=== PATIENT | male | born 2000 | race Caucasian/White ===

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

== ENCOUNTER 2018-03-23 09:13 | Emergency (ER) | payer OTHER ==
[~2018-03-23] VITALS: Ht 170.2 cm; Wt 77.1 kg
[2018-03-23 09:16] VITALS: Ht 170.2 cm; Wt 77.1 kg
[2018-03-23 10:24] LABS: BASOPHIL % 0.3 % (0-2); PLATELET COUNT 230 x10^3mcL (130-400); RED CELL DISTRIBUTION WIDTH 12.8 % (11.5-14.5)
[2018-03-23 10:33] LABS: CALCIUM 9.3 mg/dL (8.5-10.1); CARBON DIOXIDE 27.5 mmol/L (21-32); CHLORIDE SERUM 102 mmol/L (98-107); GFR1 > 60 mL/min; GLUCOSE SERUM 124 mg/dL (74-106); SODIUM SERUM 137 mmol/L (136-145)
[2018-03-23 10:34] LABS: microscopic required? NO
[2018-03-23 10:37] LABS: ALBUMIN 4.2 g/dL (3.4-5.0); ALKALINE PHOSPHATASE 110 U/L (46-116); ALT/SGPT 27 U/L (16-63); AST/SGOT 27 U/L (15-37); BILIRUBIN TOTAL 0.5 mg/dL (0.20-1.00); LIPASE 122 IU/L (73-393)
[2018-03-23 10:39] LABS: AMYLASE 122 U/L (25-115); TOTAL PROTEIN, SERUM 8.3 g/dL (6.4-8.2)
[2018-03-23 11:12] LABS: UA SPECIFIC GRAVITY 1.015 (1.005-1.035); urine erythrocyte NEGATIVE (NEGATIVE)
[2018-03-23 11:26] LABS: AMPHETAMINE QUAL UR NONE DETECTED (See below)
[2018-03-23 13:33] VITALS: BP 132/68
== END 2018-03-23 13:33 | disposition home or self-care (01) ==
LOC: ED 09:13
PROVIDERS: Emergency Medicine
DX: R11.10 Vomiting, unspecified (principal); F12.90 Cannabis use, unspecified, uncomplicated; F17.210 Nicotine dependence, cigarettes, uncomplicated
CPT/HCPCS: 99406; J1630; J2060; J7030

== ENCOUNTER 2018-06-08 12:31 | Emergency (ER) | payer OTHER ==
[~2018-06-08] VITALS: Ht 170.2 cm; Wt 78.9 kg
[2018-06-08 12:36] VITALS: Ht 170.2 cm; Wt 78.9 kg
[2018-06-08 13:21] LABS: BASOPHIL % 0.2 % (0-2); PLATELET COUNT 272 x10^3mcL (130-400)
[2018-06-08 13:34] LABS: RED CELL DISTRIBUTION WIDTH 12.7 % (11.5-14.5)
[2018-06-08 13:39] LABS: CALCIUM 9.2 mg/dL (8.5-10.1); CARBON DIOXIDE 29.2 mmol/L (21-32); CHLORIDE SERUM 103 mmol/L (98-107); GFR1 > 60 mL/min; GLUCOSE SERUM 130 mg/dL (74-106); POTASSIUM SERUM 3.8 mmol/L (3.5-5.1); SODIUM SERUM 139 mmol/L (136-145)
[2018-06-08 13:43] LABS: ALBUMIN 4.3 g/dL (3.4-5.0); ALKALINE PHOSPHATASE 119 U/L (46-116); ALT/SGPT 45 U/L (16-63); AST/SGOT 34 U/L (15-37); BILIRUBIN TOTAL 0.4 mg/dL (0.20-1.00); LIPASE 118 IU/L (73-393)
[2018-06-08 13:44] LABS: TOTAL PROTEIN, SERUM 8.4 g/dL (6.4-8.2)
[2018-06-08 15:06] LABS: microscopic required? NO
[2018-06-08 15:22] LABS: UA SPECIFIC GRAVITY 1.015 (1.005-1.035); urine erythrocyte NEGATIVE (NEGATIVE)
[2018-06-08 15:35] LABS: AMPHETAMINE QUAL UR NONE DETECTED (See below)
[2018-06-08 15:43] VITALS: BP 108/71
== END 2018-06-08 15:43 | disposition home or self-care (01) ==
LOC: ED 12:31
PROVIDERS: Emergency Medicine
DX: R10.13 Epigastric pain (principal); F12.988 Cannabis use, unspecified with other cannabis-induced disorder; R11.10 Vomiting, unspecified
CPT/HCPCS: J1630; J2060; J3490; J7030

== ENCOUNTER 2018-10-22 15:54 | Emergency (ER) | payer OTHER ==
[~2018-10-22] VITALS: Ht 170.2 cm; Wt 74.4 kg
[2018-10-22 16:07] VITALS: Ht 170.2 cm; Wt 74.4 kg
[2018-10-22 17:52] LABS: PLATELET COUNT 229 x10^3mcL (130-400); RED CELL DISTRIBUTION WIDTH 13.3 % (11.5-14.5)
[2018-10-22 17:54] LABS: BASOPHIL % 0 % (0-2)
[2018-10-22 18:04] LABS: CALCIUM 9.4 mg/dL (8.5-10.1); CARBON DIOXIDE 26.2 mmol/L (21-32); CHLORIDE SERUM 105 mmol/L (98-107); GFR1 > 60 mL/min; GLUCOSE SERUM 123 mg/dL (74-106); POTASSIUM SERUM 3.7 mmol/L (3.5-5.1); SODIUM SERUM 142 mmol/L (136-145)
[2018-10-22 18:11] LABS: ALBUMIN 4.4 g/dL (3.4-5.0); ALKALINE PHOSPHATASE 85 U/L (46-116); ALT/SGPT 37 U/L (16-63); AMYLASE 113 U/L (25-115); AST/SGOT 19 U/L (15-37); BILIRUBIN TOTAL 0.8 mg/dL (0.20-1.00); LIPASE 121 IU/L (73-393); TOTAL PROTEIN, SERUM 7.9 g/dL (6.4-8.2)
[2018-10-22 18:57] VITALS: BP 136/69
== END 2018-10-22 18:57 | disposition home or self-care (01) ==
LOC: ED 15:54
PROVIDERS: Specialist
DX: F12.988 Cannabis use, unspecified with other cannabis-induced disorder (principal); R11.10 Vomiting, unspecified
CPT/HCPCS: 82962; J1630; J2405; J3490; J7030

== ENCOUNTER 2019-04-01 12:36 | Emergency (ER) | payer OTHER ==
[~2019-04-01] VITALS: Ht 170.2 cm; Wt 75.7 kg
[2019-04-01 12:49] VITALS: Ht 170.2 cm; Wt 75.7 kg
[2019-04-01 15:31] LABS: BASOPHIL % 0 % (0-2); PLATELET COUNT 216 x10^3mcL (130-400); RED CELL DISTRIBUTION WIDTH 12.6 % (11.5-14.5)
[2019-04-01 15:32] LABS: CALCIUM 8.1 mg/dL (8.5-10.1); CARBON DIOXIDE 25.5 mmol/L (21-32); CHLORIDE SERUM 106 mmol/L (98-107); CREATININE SERUM 0.9 mg/dL (0.7-1.3); GFR1 > 60 mL/min; GLUCOSE SERUM 117 mg/dL (74-106); SODIUM SERUM 142 mmol/L (136-145)
[2019-04-01 15:36] LABS: ALBUMIN 3.5 g/dL (3.4-5.0); ALKALINE PHOSPHATASE 104 U/L (46-116); ALT/SGPT 42 U/L (16-63); AMYLASE 88 U/L (25-115); AST/SGOT 21 U/L (15-37); BILIRUBIN TOTAL 0.6 mg/dL (0.20-1.00); LIPASE 55 IU/L (73-393); TOTAL PROTEIN, SERUM 7.3 g/dL (6.4-8.2)
[2019-04-01 18:00] VITALS: BP 133/74
== END 2019-04-01 18:00 | disposition home or self-care (01) ==
LOC: ED 12:36
PROVIDERS: Emergency Medicine
DX: F12.188 Cannabis abuse with other cannabis-induced disorder (principal)
CPT/HCPCS: J1630; J1885; J2060; J2405; J7030